=== PATIENT | male | born 1960 | race Caucasian/White ===

== ENCOUNTER 2023-10-11 14:16 | Inpatient (IN) ==
[2023-10-11] MEDS ORDERED: cefTRIAXone 2 GM ADDV.VIAL 2 GM in NS 0.9% 100 ml BAG 100 ML IV ONE (15:33)
[2023-10-11 15:57] LABS: ABS Lymphocytes 0.8 10^3/uL (1.0-4.8); ABS Monocytes 1.3 10^3/uL (0.0-1.1); ABS Neutrophils 14.1 10^3/uL (1.5-7.6); ABS Nucleated RBC 0.01 10^3/ul; Eosinophil % 0.1 %; Hematocrit 47.9 % (38-53); Hemoglobin 16.3 g/dL (13.2-16.3); Lymphocyte % 4.8 %; Mean Corpuscular Hemoglobin 29.3 pg (27-33); Mean Corpuscular Hgb Conc 34.1 g/dL (31-36); Mean Corpuscular Volume 86.1 fL (80-97); Mean Platelet Volume 7.8 fL (7.5-11.2); Nucleated Red Blood Cells % 0.1 %/100WBC (0.0-0.8); Platelet Count 323 10^3/uL (150-450); Red Blood Count 5.56 10^6/uL (4.06-5.63); Red Cell Distribution Width 13.3 % (12-17); White Blood Count 16.2 10^3/uL (3.6-10.2)
[2023-10-11] MEDS: cefTRIAXone 2 gm/50 mL D5W 2 GM/50 ML BAG IV ONE (16:06)
[2023-10-11] MEDS: LACTATED RINGERS IV ONE (16:22)
[2023-10-11 16:24] LABS: Albumin 4.3 g/dL (3.2-5.2); Albumin/Globulin Ratio 1.4 (1-3); C Reactive Protein 151.43 mg/L (<8.01); Calcium 9.8 mg/dL (8.6-10.3); Creatinine, Serum 1.52 mg/dL (0.67-1.17); Potassium 4.2 mmol/L (3.5-5.0); Total Bilirubin 1.3 mg/dL (0.2-1.0); Total Protein 7.3 g/dL (6.4-8.9); eGFR CKD-EPI 51.2 (>60)
[2023-10-11 16:32] LABS: Activated Partial Thrombo Time 28.5 seconds (26.0-38.0); INR 1.06 (0.83-1.13)
[2023-10-11] MEDS ORDERED: Lidocaine 2% PF 5 ML VIAL ONE (17:06)
[2023-10-11] MEDS ORDERED: Midazolam 5 mg/5 ml VIAL 1 mg/ml 5 ml VIAL (5 mg) ONE (17:06)
[2023-10-11] MEDS ORDERED: Propofol 10 MG/ML 20 ML BTL ONE ×3 (17:06→20:16)
[2023-10-11] MEDS ORDERED: Iohexol 180 (CONTRAST) 10 ML SDV IV ONE (18:54)
[2023-10-11] MEDS ORDERED: fentaNYL 100 mcg/2 ml 50 MCG/ML VIAL ONE (19:37)
[2023-10-11] MEDS ORDERED: Ondansetron 4 mg VIAL 2 MG/ML 2 ml VIAL IV PRN (20:44)
[2023-10-11] MEDS ORDERED: Naloxone 0.4 mg VIAL 0.4 mg/ml 1 ml VIAL IV PRN (20:44)
[2023-10-11] MEDS ORDERED: Levalbuterol 1.25MG/0.5ML NEB.SOL INH PRN (20:44)
[2023-10-11] MEDS: Acetaminophen IV 1 GM/100ML 1,000 MG/100 ML BAG IV ONE (20:50)
[2023-10-11] MEDS ORDERED: Acetaminophen IV 1 GM/100ML 1,000 MG/100 ML BAG IV ONE (20:51)
[2023-10-11] MEDS ORDERED: hydrALAZINE 20 mg/ml 1 ML Vial IV ONE (20:56)
[2023-10-11] MEDS: hydrALAZINE 20 mg/ml 1 ML Vial IV IV SLOW PU ONE (21:11)
[2023-10-11 21:51] LABS: Rapid COVID-19 Molecular Undetected (Undetected)
[2023-10-11 22:57] LABS: ABS Basophils 0.1 10^3/uL (0.0-0.1); ABS Lymphocytes 0.7 10^3/uL (1.0-4.8); ABS Monocytes 0.2 10^3/uL (0.0-1.1); ABS Neutrophils 9.4 10^3/uL (1.5-7.6); ABS Nucleated RBC 0.01 10^3/ul; Eosinophil % 0.2 %; Hematocrit 45.1 % (38-53); Hemoglobin 15.4 g/dL (13.2-16.3); Lymphocyte % 6.6 %; Mean Corpuscular Hemoglobin 29.1 pg (27-33); Mean Corpuscular Hgb Conc 34.2 g/dL (31-36); Mean Corpuscular Volume 85.2 fL (80-97); Mean Platelet Volume 7.7 fL (7.5-11.2); Nucleated Red Blood Cells % 0.1 %/100WBC (0.0-0.8); Platelet Count 262 10^3/uL (150-450); Red Cell Distribution Width 13.5 % (12-17); White Blood Count 10.4 10^3/uL (3.6-10.2)
[2023-10-11 23:17] LABS: Calcium 8.6 mg/dL (8.6-10.3); Creatinine, Serum 1.58 mg/dL (0.67-1.17); Magnesium 1.5 mg/dL (1.9-2.7); Potassium 4.1 mmol/L (3.5-5.0); eGFR CKD-EPI 48.8 (>60)
[2023-10-12] MEDS: Lactated Ringers 1000 ml BAG 1,000 ML IV ONE (00:32)
[2023-10-12] MEDS: Iodixanol (CONTRAST) 320 MG/ML 100 ML SDV IV ONE (01:04)
[2023-10-12] MEDS: Cefepime 2 GM in Dextrose 2 GM/50 ML BAG IV SCH (02:27)
[2023-10-12] MEDS: Magnesium Sulfate 2 gm BAG 2 GM/50 ML BAG IVPB ONE (06:14)
[2023-10-12 08:31] LABS: ABS Basophils 0.1 10^3/uL (0.0-0.1); ABS Lymphocytes 0.7 10^3/uL (1.0-4.8); ABS Monocytes 1.1 10^3/uL (0.0-1.1); ABS Neutrophils 11.7 10^3/uL (1.5-7.6); ABS Nucleated RBC 0.01 10^3/ul; Eosinophil % 0.3 %; Hematocrit 41.5 % (38-53); Hemoglobin 14.3 g/dL (13.2-16.3); Lymphocyte % 5.2 %; Mean Corpuscular Hemoglobin 29.4 pg (27-33); Mean Corpuscular Hgb Conc 34.4 g/dL (31-36); Mean Corpuscular Volume 85.5 fL (80-97); Mean Platelet Volume 7.5 fL (7.5-11.2); Nucleated Red Blood Cells % 0.1 %/100WBC (0.0-0.8); Platelet Count 266 10^3/uL (150-450); Red Blood Count 4.86 10^6/uL (4.06-5.63); Red Cell Distribution Width 13.6 % (12-17); White Blood Count 13.7 10^3/uL (3.6-10.2)
[2023-10-12 09:14] LABS: Calcium 8.5 mg/dL (8.6-10.3); Creatinine, Serum 1.32 mg/dL (0.67-1.17); Magnesium 2.2 mg/dL (1.9-2.7); eGFR CKD-EPI 60.6 (>60)
[2023-10-12] MEDS: Senna TAB 8.6 mg TAB PO PRN (12:12)
[2023-10-12] MEDS: Polyethylene Glycol 3350 17 GM PACKET PO PRN (12:12)
[2023-10-12] MEDS ORDERED: cefTRIAXone 2 gm/50 mL D5W 2 GM/50 ML BAG IV SCH (16:00)
[2023-10-12] MEDS: Lactated Ringers 1000 ml BAG 1,000 ML IV SCH (17:28)
[2023-10-13 08:10] LABS: ABS Basophils 0.1 10^3/uL (0.0-0.1); ABS Eosinophils 0.1 10^3/uL (0.0-0.5); ABS Neutrophils 5.9 10^3/uL (1.5-7.6); ABS Nucleated RBC 0.01 10^3/ul; Hematocrit 40.6 % (38-53); Hemoglobin 14.2 g/dL (13.2-16.3); Lymphocyte % 12.4 %; Mean Corpuscular Hemoglobin 29.9 pg (27-33); Mean Corpuscular Hgb Conc 34.9 g/dL (31-36); Mean Corpuscular Volume 85.6 fL (80-97); Mean Platelet Volume 7.5 fL (7.5-11.2); Nucleated Red Blood Cells % 0.1 %/100WBC (0.0-0.8); Platelet Count 227 10^3/uL (150-450); Red Blood Count 4.74 10^6/uL (4.06-5.63); Red Cell Distribution Width 13.3 % (12-17); White Blood Count 7.9 10^3/uL (3.6-10.2)
[2023-10-13 08:35] LABS: Calcium 8.3 mg/dL (8.6-10.3); Creatinine, Serum 1.25 mg/dL (0.67-1.17); Magnesium 2.1 mg/dL (1.9-2.7); Potassium 3.5 mmol/L (3.5-5.0); eGFR CKD-EPI 64.7 (>60)
[2023-10-13] MEDS: Potassium Chlor 20 meq TAB.ER PO ONE (10:35)
[2023-10-13 14:50] LABS: Urine Appearance Turbid; Urine Bilirubin Negative (Negative); Urine Blood 3+ (Negative); Urine Color Yellow; Urine Glucose Negative (Negative); Urine Ketones Negative (Negative); Urine Nitrite Negative (Negative); Urine Protein 1+ (>=30 mg/dL) (Negative); Urine Specific Gravity 1.017 (1.002-1.030); Urine Urobilinogen Negative (Negative); Urine pH 5.5 (5.0-8.0)
[2023-10-13 15:37] LABS: Urine Bacteria 1+ /HPF (Absent); Urine Red Blood Cell 3+(>10/hpf) /HPF (0-Trace); Urine Squamous Epithelial Cell Present /HPF (Absent); Urine White Blood Cell 3+(>20/hpf) /HPF (0-Trace)
[2023-10-14 06:18] LABS: Hematocrit 39.9 % (38-53); Hemoglobin 13.6 g/dL (13.2-16.3); Mean Corpuscular Volume 85.3 fL (80-97); Mean Platelet Volume 7.7 fL (7.5-11.2); Platelet Count 239 10^3/uL (150-450); Red Blood Count 4.67 10^6/uL (4.06-5.63); Red Cell Distribution Width 13.9 % (12-17); White Blood Count 6.7 10^3/uL (3.6-10.2)
[2023-10-14 06:39] LABS: Calcium 8.4 mg/dL (8.6-10.3); Creatinine, Serum 1.14 mg/dL (0.67-1.17); Potassium 4.2 mmol/L (3.5-5.0); eGFR CKD-EPI 72.3 (>60)
[2023-10-14 10:00] VITALS: BP 141/73
== END 2023-10-14 14:25 | disposition home or self-care (01) | DRG 720 ==
LOC: ED 14:16 → EDHOLD 14:16 → SUATTDRO 17:32 → AA 18:12 → SSU 23:53
PROVIDERS: ADMIT Internal Medicine; ATTEND Family Medicine